=== PATIENT | female | born 1935 | race African-American/Black ===

== ENCOUNTER 2021-05-18 15:43 | Inpatient (IN) | payer MEDICARE ==
[~2021-05-18] VITALS: Ht 165.1 cm; Wt 60.0 kg
[~2021-05-18 15:43] MED LIST: ATOR10TA PO; DILT-26 PO; ESOM20CA PO; LORA10TA7 PO; LOSA100T32 PO; POTA10TA15 PO; RIVA20TA PO
[2021-05-18 16:57] LABS: BASOPHILS % 1.1 % (0.0-2.0); EOSINOPHILS % 1.4 % (0.0-5.0); HEMATOCRIT. 36.1 % (36.0-48.0); HEMOGLOBIN. 11.4 g/dL (12.0-16.0); LYMPHOCYTES % 21.9 % (20.0-50.0); MEAN CORPUSCULAR HEMOGLOBIN 25.8 pg (28.0-32.0); MEAN CORPUSCULAR VOLUME 81.6 fL (81.0-99.0); MEAN PLATELET VOLUME 8.7 fl (7.4-10.4); MONOCYTES % 13.2 % (2.0-8.0); NEUTROPHILS % 62.4 % (40.0-76.0); PLATELET 268 x1000/uL (130-400); RED BLOOD CELL COUNT 4.42 mill/uL (4.2-5.4); RED CELL DISTRIBUTION WIDTH 14.9 % (11.6-14.6)
[2021-05-18 17:00] LABS: CHLORIDE 102 mEq/L (98-107)
[2021-05-18] MEDS ORDERED: POTASSIUM CHLORIDE 20MEQ/PACKET PO ONE (21:15)
[2021-05-19] MEDS: LORAZEPAM 2MG/ML CPJ IV PRN ×2 (07:00→15:41)
[2021-05-19 09:45] VITALS: BP 137/74
[2021-05-19] MEDS ORDERED: ACETAMINOPHEN 650MG SUPP PR PRN (11:00)
[2021-05-19] MEDS ORDERED: NA PHOS,M-B/NA PHOS,DI-BA ENEMA 118ML PR PRN (11:00)
[2021-05-19] MEDS ORDERED: DOCUSATE SODIUM 100MG CAPSULE PO PRN (11:00)
[2021-05-19] MEDS ORDERED: MAGNESIUM/ALUMINUM HYDROXIDE/SIMETHICONE 30ML UDC PO PRN (11:00)
[2021-05-19] MEDS ORDERED: CEFTRIAXONE 1 G PREMIX 50 ML IV SCH (11:00)
[2021-05-19] MEDS ORDERED: GUAIFENESIN 200MG/10ML SUGAR FREE UDC PO PRN (11:00)
[2021-05-19] MEDS ORDERED: IPRATROPIUM/ALBUTEROL 0.5-3(2.5)MG/3ML NEB NEB PRN (11:00)
[2021-05-19] MEDS ORDERED: NALOXONE HCL 0.4MG/ML VIAL IV PRN (11:45)
[2021-05-19 12:00] VITALS: BP 142/64
[2021-05-19] MEDS ORDERED: ENOXAPARIN 30MG/0.3ML SYR SUBCUT SCH (12:00)
[2021-05-19 12:39] LABS: BASOPHILS % 0.7 % (0.0-2.0); EOSINOPHILS % 2.3 % (0.0-5.0); HEMATOCRIT. 37.5 % (36.0-48.0); HEMOGLOBIN. 11.9 g/dL (12.0-16.0); MEAN CORPUSCULAR HEMOGLOBIN 25.8 pg (28.0-32.0); MEAN CORPUSCULAR VOLUME 81.3 fL (81.0-99.0); MEAN PLATELET VOLUME 8.2 fl (7.4-10.4); MONOCYTES % 14.9 % (2.0-8.0); NEUTROPHILS % 59.1 % (40.0-76.0); PLATELET 287 x1000/uL (130-400); RED BLOOD CELL COUNT 4.61 mill/uL (4.2-5.4); RED CELL DISTRIBUTION WIDTH 15.1 % (11.6-14.6)
[2021-05-19 12:44] LABS: CHLORIDE 110 mEq/L (98-107)
[2021-05-19] MEDS ORDERED: ENOXAPARIN 80MG/0.8ML SYR SUBCUT SCH (15:00)
[2021-05-19] MEDS: CEFTRIAXONE 1,000 MG in DEXTROSE 5% WATER 50 ML IV SCH (15:53)
[2021-05-19 16:00] VITALS: BP 147/62
[2021-05-19 16:20] LABS: CREATINE KINASE 64 IU/L (26-192)
[2021-05-19 16:22] LABS: CREATINE KINASE MB FRACTION < 1.0 ng/mL (0.5-3.6)
[2021-05-19 16:23] LABS: BG BASE EXCESS 3.2 mmol/L (-2.0-2.0); BG CARBOXYHEMOGLOBIN 0.3 % (0.5-1.5); BG DEOXYHEMOGLOBIN 3.6 % (0.0-5.0); BG FRACTION INSPIRED OXYGEN 21; BG HCO3 ACT 26.6 mmol/L (22.0-26.0); BG METHEMOGLOBIN 0.4 % (0.0-1.5); BG OXYGEN SATURATION 96.4 % (92.0-98.5); BG OXYHEMOGLOBIN 95.7 % (94.0-97.0); BG PCO2 36.2 mmHg (35.0-45.0); BG PH 7.484 (7.350-7.450); BG PO2 84.2 mmHg (75.0-100.0); BG SAMPLE SITE RIGHT BRACHIAL; BG VENT MODE ROOM AIR
[2021-05-19] MEDS ORDERED: ENOXAPARIN 40MG/0.4ML SYR SUBCUT NR (16:30)
[2021-05-19 16:35] LABS: INR 1.1; PROTHROMBIN TIME 11.8 sec (9.6-11.0)
[2021-05-19] MEDS ORDERED: LOSA50TA41 MT (16:40)
[2021-05-19] MEDS ORDERED: SIMV-43 MT (16:40)
[2021-05-19] MEDS ORDERED: AMLO5TAB88 MT (16:42)
[2021-05-19] MEDS ORDERED: DORZ10DR9 EACHEYE (16:42)
[2021-05-19] MEDS ORDERED: FURO20TA4 MT (16:42)
[2021-05-19] MEDS ORDERED: COR6 MT (16:42)
[2021-05-19 20:00] VITALS: BP 119/77
[2021-05-19] MEDS: FAMOTIDINE 20MG TABLET PO SCH (21:28)
[2021-05-19] MEDS: DILTIAZEM HCL 30MG TABLET PO SCH (21:29)
[2021-05-20] VITALS: BP 119/65
[2021-05-20 00:19] LABS: CREATINE KINASE 59 IU/L (26-192)
[2021-05-20 00:20] LABS: CREATINE KINASE MB FRACTION < 1.0 ng/mL (0.5-3.6)
[2021-05-20 04:00] VITALS: BP 141/89
[2021-05-20 07:23] LABS: HEMATOCRIT. 38.5 % (36.0-48.0); HEMOGLOBIN. 12.4 g/dL (12.0-16.0); MEAN CORPUSCULAR HEMOGLOBIN 26.2 pg (28.0-32.0); MEAN CORPUSCULAR VOLUME 81.1 fL (81.0-99.0); MEAN PLATELET VOLUME 8.5 fl (7.4-10.4); PLATELET 293 x1000/uL (130-400); RED BLOOD CELL COUNT 4.74 mill/uL (4.2-5.4)
[2021-05-20 07:53] LABS: CHLORIDE 112 mEq/L (98-107)
[2021-05-20 08:00] VITALS: BP 149/97
[2021-05-20] MEDS: DILTIAZEM HCL 30MG TABLET PO SCH ×3 (08:08→22:28)
[2021-05-20 08:11] LABS: HDL CHOLESTEROL 58 mg/dL (40-59); LDL CHOLESTEROL 145 mg/dL (5-100)
[2021-05-20] MEDS ORDERED: DILTIAZEM HCL 5MG/ML 5ML VIAL IV SCH (09:00)
[2021-05-20] MEDS ORDERED: ASPIRIN 81MG EC TABLET PO SCH (09:00)
[2021-05-20 12:00] VITALS: BP 113/68
[2021-05-20] MEDS: CEFTRIAXONE 1,000 MG in DEXTROSE 5% WATER 50 ML IV SCH (13:37)
[2021-05-20 14:54] LABS: VITAMIN B12 SERUM 496 pg/mL (211-911)
[2021-05-20] MEDS: ENOXAPARIN 60MG/0.6ML SYR SUBCUT SCH ×2 (14:56→22:18)
[2021-05-20] MEDS ORDERED: ENOXAPARIN 80MG/0.8ML SYR SUBCUT SCH (15:00)
[2021-05-20 16:00] VITALS: BP 122/74
[2021-05-20 16:21] LABS: PLATELET ESTIMATE NORMAL
[2021-05-20 20:00] VITALS: BP 151/90
[2021-05-20] MEDS: HYDROCODONE/ACETAMINOPHEN 5/325MG TABLET PO PRN (22:28)
[2021-05-20] MEDS: LORAZEPAM 0.5MG TABLET PO PRN (22:29)
[2021-05-20] MEDS: FAMOTIDINE 20MG TABLET PO SCH (22:29)
[2021-05-20] MEDS: ONDANSETRON HCL 4MG/2ML INJ IV PRN (22:29)
[2021-05-21] VITALS: BP 143/74
[2021-05-21 04:00] VITALS: BP 139/78
[2021-05-21] MEDS: DILTIAZEM HCL 30MG TABLET PO SCH (06:52)
[2021-05-21 08:00] VITALS: BP 135/74
[2021-05-21 12:00] VITALS: BP 136/61
[2021-05-21] MEDS: CEFTRIAXONE 1,000 MG in DEXTROSE 5% WATER 50 ML IV SCH (13:57)
[2021-05-21] MEDS: DILTIAZEM HCL 60MG TABLET PO SCH ×2 (13:57→21:23)
[2021-05-21 16:00] VITALS: BP 111/56
[2021-05-21] MEDS: ENOXAPARIN 80MG/0.8ML SYR SUBCUT SCH ×2 (18:42→21:24)
[2021-05-21 20:00] VITALS: BP 121/57
[2021-05-21] MEDS: LORAZEPAM 0.5MG TABLET PO PRN (20:26)
[2021-05-21] MEDS: ONDANSETRON HCL 4MG/2ML INJ IV PRN (20:27)
[2021-05-21] MEDS: HYDROCODONE/ACETAMINOPHEN 5/325MG TABLET PO PRN (20:27)
[2021-05-21] MEDS: FAMOTIDINE 20MG TABLET PO SCH (21:23)
[2021-05-21] MEDS: MEMANTINE HCL 5MG TABLET PO SCH (21:27)
[2021-05-22] VITALS: BP 137/67
[2021-05-22 04:00] VITALS: BP 141/74
[2021-05-22] MEDS: DILTIAZEM HCL 60MG TABLET PO SCH ×3 (06:57→21:09)
[2021-05-22 08:00] VITALS: BP 147/90
[2021-05-22] MEDS: MEMANTINE HCL 5MG TABLET PO SCH (08:27)
[2021-05-22 12:00] VITALS: BP 141/46
[2021-05-22] MEDS ORDERED: LIDOCAINE HCL/PF 1% 10 MG/ML 5ML VIAL ONE (13:29)
[2021-05-22] MEDS ORDERED: SODIUM BICARBONATE 4% (2.4MEQ) 5ML VIAL IV ONE (13:29)
[2021-05-22] MEDS: CEFTRIAXONE 1,000 MG in DEXTROSE 5% WATER 50 ML IV SCH (14:09)
[2021-05-22 16:00] VITALS: BP 149/50
[2021-05-22 16:42] LABS: BASOPHILS % 1.3 % (0.0-2.0); EOSINOPHILS % 6.2 % (0.0-5.0); HEMATOCRIT. 33.7 % (36.0-48.0); HEMOGLOBIN. 10.6 g/dL (12.0-16.0); LYMPHOCYTES % 25.2 % (20.0-50.0); MEAN CORPUSCULAR VOLUME 82.3 fL (81.0-99.0); MONOCYTES % 13.5 % (2.0-8.0); NEUTROPHILS % 53.8 % (40.0-76.0); PLATELET 308 x1000/uL (130-400); RED BLOOD CELL COUNT 4.09 mill/uL (4.2-5.4)
[2021-05-22 16:50] LABS: CHLORIDE 107 mEq/L (98-107)
[2021-05-22] MEDS: ENOXAPARIN 80MG/0.8ML SYR SUBCUT SCH (19:06)
[2021-05-22 20:00] VITALS: BP 114/54
[2021-05-22] MEDS: FAMOTIDINE 20MG TABLET PO SCH (21:09)
[2021-05-22] MEDS: DIPHENHYDRAMINE 50MG/ML VIAL IV PRN (21:10)
[2021-05-22] MEDS: LORAZEPAM 0.5MG TABLET PO PRN (23:09)
[2021-05-23 04:00] VITALS: BP 136/52
[2021-05-23] MEDS ORDERED: IODIXANOL 320MG/ML 100 ML BOTTLE IV ONE (04:11)
[2021-05-23] MEDS ORDERED: LIDOCAINE HCL 1% 30ML VIAL (10MG/ML) ONE (04:11)
[2021-05-23] MEDS ORDERED: HEPARIN 1,000 UNITS PREMIX 0 ML IV ONE (04:11)
[2021-05-23] MEDS ORDERED: IOHEXOL-300 100 ML BOTTLE ONE (04:12)
[2021-05-23] MEDS ORDERED: MIDAZOLAM HCL 2 MG/2 ML VIAL ONE (04:22)
[2021-05-23] MEDS ORDERED: FENTANYL CITRATE/PF 50MCG/ML 2ML VIAL ONE (04:22)
[2021-05-23] MEDS ORDERED: ONDANSETRON HCL 4MG/2ML INJ ONE (04:26)
[2021-05-23] MEDS: LORAZEPAM 0.5MG TABLET PO PRN ×2 (04:51→22:30)
[2021-05-23] MEDS: ENOXAPARIN 80MG/0.8ML SYR SUBCUT SCH ×2 (06:29→17:12)
[2021-05-23] MEDS: DILTIAZEM HCL 60MG TABLET PO SCH ×3 (06:29→21:25)
[2021-05-23 08:00] VITALS: BP 158/68
[2021-05-23 08:20] LABS: CHLORIDE 110 mEq/L (98-107)
[2021-05-23] MEDS: MEMANTINE HCL 5MG TABLET PO SCH (09:27)
[2021-05-23] MEDS: ALLOPURINOL 100 MG TABLET PO SCH (09:27)
[2021-05-23 10:15] LABS: BASOPHILS % 0.8 % (0.0-2.0); HEMATOCRIT. 34.3 % (36.0-48.0); HEMOGLOBIN. 10.7 g/dL (12.0-16.0); MEAN CORPUSCULAR HEMOGLOBIN 25.5 pg (28.0-32.0); MEAN CORPUSCULAR VOLUME 81.6 fL (81.0-99.0); MEAN PLATELET VOLUME 8.4 fl (7.4-10.4); NEUTROPHILS % 55.2 % (40.0-76.0); PLATELET 316 x1000/uL (130-400); RED BLOOD CELL COUNT 4.21 mill/uL (4.2-5.4); RED CELL DISTRIBUTION WIDTH 15.2 % (11.6-14.6)
[2021-05-23 12:00] VITALS: BP 137/81
[2021-05-23] MEDS: CEFTRIAXONE 1,000 MG in DEXTROSE 5% WATER 50 ML IV SCH (13:38)
[2021-05-23] MEDS ORDERED: ALLO100T MT ×2 (14:30)
[2021-05-23] MEDS ORDERED: MEMA5TAB7 MT ×2 (14:30)
[2021-05-23] MEDS ORDERED: MED4 MT ×2 (14:30)
[2021-05-23] MEDS ORDERED: DILT60TA41 MT ×2 (14:30)
[2021-05-23] MEDS: PREDNISONE 20MG TABLET PO SCH (14:50)
[2021-05-23 16:00] VITALS: BP 153/90
[2021-05-23 16:42] LABS: CLARITY URINE TURBID (CLEAR); COLOR URINE YELLOW (YELLOW); KETONES URINE TRACE (NEGATIVE); LEUKOCYTE ESTERASE URINE 3+ (NEGATIVE); NITRITE URINE POSITIVE (NEGATIVE); OCCULT BLOOD URINE 2+ (NEGATIVE); PH URINE 5.5 (4.5-8.0); PROTEIN URINE 1+ (NEGATIVE); SPECIFIC GRAVITY URINE 1.018 (1.005-1.030); UROBILINOGEN URINE 0.2 E.U./dL (0.2-1.0)
[2021-05-23 20:00] VITALS: BP 149/76
[2021-05-23] MEDS: FAMOTIDINE 20MG TABLET PO SCH (21:23)
[2021-05-24] VITALS: BP 162/79
[2021-05-24 04:00] VITALS: BP 113/71
[2021-05-24] MEDS: DILTIAZEM HCL 60MG TABLET PO SCH ×4 (05:43→21:09)
[2021-05-24] MEDS: ENOXAPARIN 80MG/0.8ML SYR SUBCUT SCH (05:43)
[2021-05-24 08:00] VITALS: BP 141/54
[2021-05-24] MEDS: PREDNISONE 20MG TABLET PO SCH (08:29)
[2021-05-24] MEDS: MEMANTINE HCL 5MG TABLET PO SCH (08:29)
[2021-05-24] MEDS: LORAZEPAM 0.5MG TABLET PO PRN (08:29)
[2021-05-24] MEDS: ALLOPURINOL 100 MG TABLET PO SCH (08:30)
[2021-05-24 12:00] VITALS: BP 144/64
[2021-05-24] MEDS: CEFTRIAXONE 1,000 MG in DEXTROSE 5% WATER 50 ML IV SCH (13:00)
[2021-05-24 16:00] VITALS: BP 136/82
[2021-05-24 16:13] LABS: BASOPHILS % 0.4 % (0.0-2.0); HEMATOCRIT. 37.2 % (36.0-48.0); LYMPHOCYTES % 11.7 % (20.0-50.0); MEAN CORPUSCULAR HEMOGLOBIN 26.7 pg (28.0-32.0); MEAN CORPUSCULAR VOLUME 82.6 fL (81.0-99.0); MEAN PLATELET VOLUME 9.1 fl (7.4-10.4); MONOCYTES % 3.3 % (2.0-8.0); NEUTROPHILS % 84.6 % (40.0-76.0); PLATELET 293 x1000/uL (130-400); RED CELL DISTRIBUTION WIDTH 15.2 % (11.6-14.6)
[2021-05-24 16:40] LABS: CHLORIDE 104 mEq/L (98-107)
[2021-05-24] MEDS: RISPERIDONE 0.25MG TABLET PO SCH (18:05)
[2021-05-24] MEDS ORDERED: DIGOXIN 500MCG/2ML AMP IV NR (19:00)
[2021-05-24 20:00] VITALS: BP 110/74
[2021-05-24] MEDS: LORAZEPAM 2MG/ML CPJ IV PRN (21:08)
[2021-05-24] MEDS: FAMOTIDINE 20MG TABLET PO SCH (21:15)
[2021-05-24] MEDS ORDERED: HALOPERIDOL LACTATE 5MG/ML VIAL IM ONE (22:45)
[2021-05-25] VITALS: BP 111/68
[2021-05-25 04:00] VITALS: BP 115/72
[2021-05-25] MEDS: DILTIAZEM HCL 60MG TABLET PO SCH ×3 (06:16→21:17)
[2021-05-25 08:00] VITALS: BP 153/83
[2021-05-25] MEDS: RISPERIDONE 0.25MG TABLET PO SCH ×2 (08:54→23:53)
[2021-05-25] MEDS: MEMANTINE HCL 5MG TABLET PO SCH ×2 (08:54→23:53)
[2021-05-25] MEDS: PREDNISONE 20MG TABLET PO SCH (08:54)
[2021-05-25] MEDS: ALLOPURINOL 100 MG TABLET PO SCH (08:54)
[2021-05-25 12:05] LABS: BASOPHILS % 0.4 % (0.0-2.0); EOSINOPHILS % 0.2 % (0.0-5.0); HEMATOCRIT. 34.5 % (36.0-48.0); LYMPHOCYTES % 14.9 % (20.0-50.0); MEAN CORPUSCULAR VOLUME 81.1 fL (81.0-99.0); MONOCYTES % 9.3 % (2.0-8.0); NEUTROPHILS % 75.2 % (40.0-76.0); PLATELET 371 x1000/uL (130-400); RED BLOOD CELL COUNT 4.25 mill/uL (4.2-5.4)
[2021-05-25 12:14] LABS: CHLORIDE 107 mEq/L (98-107)
[2021-05-25] MEDS: CLOPIDOGREL 75MG TABLET PO SCH (16:56)
[2021-05-25 20:00] VITALS: BP 159/94
[2021-05-25] MEDS: FAMOTIDINE 20MG TABLET PO SCH (21:17)
[2021-05-25] MEDS: HALOPERIDOL LACTATE 5MG/ML VIAL IM PRN (21:17)
[2021-05-26] VITALS: BP 151/73
[2021-05-26 04:00] VITALS: BP 155/86
[2021-05-26] MEDS: DILTIAZEM HCL 60MG TABLET PO SCH ×2 (06:30→14:48)
[2021-05-26 06:59] LABS: HEMATOCRIT 35.8 % (36.0-48.0); HEMOGLOBIN 11.8 g/dL (12.0-16.0); MEAN CORPUSCULAR HEMOGLOBIN 26.6 pg (28.0-32.0); MEAN CORPUSCULAR VOLUME 80.7 fL (81.0-99.0); PLATELET 426 x1000/uL (130-400); RED BLOOD CELL COUNT 4.44 mill/uL (4.2-5.4); RED CELL DISTRIBUTION WIDTH 14.9 % (11.6-14.6)
[2021-05-26 07:03] LABS: CHLORIDE 108 mEq/L (98-107)
[2021-05-26 08:00] VITALS: BP 155/90
[2021-05-26] MEDS: CLOPIDOGREL 75MG TABLET PO SCH (08:35)
[2021-05-26] MEDS: LORAZEPAM 2MG/ML CPJ IV PRN (08:35)
[2021-05-26] MEDS: PREDNISONE 20MG TABLET PO SCH (08:35)
[2021-05-26] MEDS: MEMANTINE HCL 5MG TABLET PO SCH (08:35)
[2021-05-26] MEDS: RISPERIDONE 0.25MG TABLET PO SCH (08:35)
[2021-05-26] MEDS: ALLOPURINOL 100 MG TABLET PO SCH (08:35)
[2021-05-26 12:00] VITALS: BP 154/92
[2021-05-26 16:00] VITALS: BP 166/96
[2021-05-26] MEDS ORDERED: DIGOXIN 500MCG/2ML AMP IV NR (16:48)
[2021-05-26] MEDS: CLONIDINE 0.1MG TABLET PO SCH ×2 (16:57→21:01)
[2021-05-26] MEDS: MEROPENEM 1000MG in NORMAL SALINE 100ML IV SCH (18:11)
[2021-05-26 19:57] VITALS: BP 166/75
[2021-05-26] MEDS: HALOPERIDOL LACTATE 5MG/ML VIAL IM PRN (21:01)
[2021-05-26] MEDS: FAMOTIDINE 20MG TABLET PO SCH (21:01)
[2021-05-26] MEDS ORDERED: DILTIAZEM HCL 90MG TABLET PO SCH (22:00)
[2021-05-27] VITALS (7 sets, daily range): BP systolic 116–191; BP diastolic 54–92
[2021-05-27] MEDS: CLONIDINE 0.1MG TABLET PO PRN (00:24)
[2021-05-27] MEDS: HYDRALAZINE 20MG/ML VIAL IV PRN (02:27)
[2021-05-27] MEDS: MEROPENEM 1000MG in NORMAL SALINE 100ML IV SCH ×2 (06:21→17:50)
[2021-05-27 08:33] LABS: HEMATOCRIT 33.4 % (36.0-48.0); HEMOGLOBIN 10.9 g/dL (12.0-16.0); MEAN CORPUSCULAR HEMOGLOBIN 26.4 pg (28.0-32.0); MEAN CORPUSCULAR VOLUME 80.9 fL (81.0-99.0); PLATELET 420 x1000/uL (130-400); RED BLOOD CELL COUNT 4.13 mill/uL (4.2-5.4); RED CELL DISTRIBUTION WIDTH 15.1 % (11.6-14.6)
[2021-05-27] MEDS: CLOPIDOGREL 75MG TABLET PO SCH (08:59)
[2021-05-27 09:03] LABS: CHLORIDE 108 mEq/L (98-107)
[2021-05-27] MEDS: DILTIAZEM HCL 60MG TABLET PO SCH ×2 (14:00→21:07)
[2021-05-27] MEDS: FAMOTIDINE 20MG TABLET PO SCH (21:07)
[2021-05-28] VITALS: BP 155/75
[2021-05-28 04:00] VITALS: BP 127/76
[2021-05-28] MEDS: MEROPENEM 1000MG in NORMAL SALINE 100ML IV SCH ×2 (05:13→17:08)
[2021-05-28] MEDS: DILTIAZEM HCL 60MG TABLET PO SCH ×3 (06:22→22:07)
[2021-05-28 07:16] LABS: BASOPHILS % 0.4 % (0.0-2.0); EOSINOPHILS % 1.1 % (0.0-5.0); HEMATOCRIT. 37.2 % (36.0-48.0); HEMOGLOBIN. 12.2 g/dL (12.0-16.0); MEAN CORPUSCULAR HEMOGLOBIN 26.6 pg (28.0-32.0); MEAN CORPUSCULAR VOLUME 80.8 fL (81.0-99.0); MEAN PLATELET VOLUME 8.1 fl (7.4-10.4); MONOCYTES % 11.4 % (2.0-8.0); NEUTROPHILS % 56.1 % (40.0-76.0); PLATELET 391 x1000/uL (130-400)
[2021-05-28 07:50] VITALS: BP 143/89
[2021-05-28] MEDS: CLOPIDOGREL 75MG TABLET PO SCH (08:27)
[2021-05-28 11:40] VITALS: BP 164/61
[2021-05-28] MEDS: CLONIDINE 0.1MG TABLET PO PRN ×2 (11:50→22:08)
[2021-05-28 15:52] VITALS: BP 145/77
[2021-05-28 20:00] VITALS: BP 162/75
[2021-05-28] MEDS: FAMOTIDINE 20MG TABLET PO SCH (22:08)
[2021-05-28] MEDS: DIPHENHYDRAMINE 50MG/ML VIAL IV PRN (22:10)
[2021-05-29] VITALS: BP 111/50
[2021-05-29] MEDS: LORAZEPAM 2MG/ML CPJ IV PRN (00:27)
[2021-05-29 04:00] VITALS: BP 132/66
[2021-05-29] MEDS: MEROPENEM 1000MG in NORMAL SALINE 100ML IV SCH ×2 (04:52→17:40)
[2021-05-29] MEDS: DILTIAZEM HCL 60MG TABLET PO SCH ×2 (06:00→14:00)
[2021-05-29 08:40] VITALS: BP 174/63
[2021-05-29] MEDS: CLONIDINE 0.1MG TABLET PO PRN (10:39)
[2021-05-29] MEDS: CLOPIDOGREL 75MG TABLET PO SCH (10:40)
[2021-05-29 12:00] VITALS: BP 132/76
[2021-05-29] MEDS ORDERED: LIDOCAINE HCL 1% 20ML VIAL (Pyxis) INJ ONE (13:18)
[2021-05-29 15:54] VITALS: BP 109/51
[2021-05-29 20:05] VITALS: BP 128/58
[2021-05-29] MEDS: FAMOTIDINE 20MG TABLET PO SCH (21:00)
[2021-05-30] VITALS: BP 122/60
[2021-05-30 01:11] LABS: BASOPHILS % 0.6 % (0.0-2.0); EOSINOPHILS % 4.4 % (0.0-5.0); HEMATOCRIT. 33.3 % (36.0-48.0); HEMOGLOBIN. 10.8 g/dL (12.0-16.0); LYMPHOCYTES % 17.4 % (20.0-50.0); MEAN CORPUSCULAR HEMOGLOBIN 26.5 pg (28.0-32.0); MEAN CORPUSCULAR VOLUME 82.1 fL (81.0-99.0); MONOCYTES % 10.4 % (2.0-8.0); NEUTROPHILS % 67.2 % (40.0-76.0); PLATELET 322 x1000/uL (130-400); RED BLOOD CELL COUNT 4.06 mill/uL (4.2-5.4); RED CELL DISTRIBUTION WIDTH 15.2 % (11.6-14.6)
[2021-05-30 01:14] LABS: CHLORIDE 109 mEq/L (98-107)
[2021-05-30 01:22] LABS: CREATINE KINASE 29 IU/L (26-192)
[2021-05-30 01:25] LABS: CREATINE KINASE MB FRACTION < 1.0 ng/mL (0.5-3.6)
[2021-05-30 01:35] LABS: DIGOXIN 0.5 ng/mL (0.9-2.0)
[2021-05-30 04:00] VITALS: BP 128/54
[2021-05-30] MEDS: MEROPENEM 1000MG in NORMAL SALINE 100ML IV SCH ×2 (06:17→17:41)
[2021-05-30] MEDS ORDERED: NA PHOS,M-B/NA PHOS,DI-BA ENEMA 118ML PR SCH (07:00)
[2021-05-30 08:00] VITALS: BP 140/76
[2021-05-30] MEDS ORDERED: DILTIAZEM HCL 60MG TABLET PO NR (11:00)
[2021-05-30] MEDS ORDERED: DILTIAZEM HCL 5MG/ML 5ML VIAL IV NR (11:00)
[2021-05-30 12:00] VITALS: BP 156/74
[2021-05-30 13:14] LABS: HEMATOCRIT. 35.3 % (36.0-48.0); HEMOGLOBIN. 11.2 g/dL (12.0-16.0); MEAN CORPUSCULAR HEMOGLOBIN 25.8 pg (28.0-32.0); MEAN CORPUSCULAR VOLUME 81.3 fL (81.0-99.0); MEAN PLATELET VOLUME 8.2 fl (7.4-10.4); PLATELET 329 x1000/uL (130-400); RED BLOOD CELL COUNT 4.34 mill/uL (4.2-5.4); RED CELL DISTRIBUTION WIDTH 15.3 % (11.6-14.6)
[2021-05-30 13:18] LABS: CHLORIDE 107 mEq/L (98-107)
[2021-05-30] MEDS ORDERED: LEVOFLOXACIN 500MG PREMIX 100 ML IV SCH ×2 (13:30→15:00)
[2021-05-30 13:46] LABS: PLATELET ESTIMATE NORMAL
[2021-05-30] MEDS ORDERED: DILTIAZEM HCL 30MG TABLET PO SCH (14:00)
[2021-05-30 16:00] VITALS: BP 130/58
[2021-05-30 16:17] LABS: CLARITY URINE CLEAR (CLEAR); COLOR URINE YELLOW (YELLOW); KETONES URINE NEGATIVE (NEGATIVE); LEUKOCYTE ESTERASE URINE NEGATIVE (NEGATIVE); NITRITE URINE NEGATIVE (NEGATIVE); OCCULT BLOOD URINE NEGATIVE (NEGATIVE); PH URINE 6.5 (4.5-8.0); PROTEIN URINE NEGATIVE (NEGATIVE); SPECIFIC GRAVITY URINE 1.015 (1.005-1.030); UROBILINOGEN URINE 0.2 E.U./dL (0.2-1.0)
[2021-05-30 20:00] VITALS: BP 103/64
[2021-05-30] MEDS: FAMOTIDINE 20MG TABLET PO SCH (21:00)
[2021-05-30] MEDS: DILTIAZEM HCL 30MG TABLET PO SCH (22:11)
[2021-05-31] VITALS: BP 143/93
[2021-05-31] MEDS: ACETAMINOPHEN 325MG TABLET PO PRN (01:28)
[2021-05-31 04:00] VITALS: BP 143/84
[2021-05-31] MEDS: MEROPENEM 1000MG in NORMAL SALINE 100ML IV SCH (05:50)
[2021-05-31] MEDS: DILTIAZEM HCL 30MG TABLET PO SCH ×3 (05:51→18:50)
[2021-05-31 07:06] LABS: BASOPHILS % 0.7 % (0.0-2.0); HEMATOCRIT. 34.4 % (36.0-48.0); LYMPHOCYTES % 24.1 % (20.0-50.0); MEAN CORPUSCULAR HEMOGLOBIN 26.2 pg (28.0-32.0); MEAN CORPUSCULAR VOLUME 81.8 fL (81.0-99.0); MEAN PLATELET VOLUME 8.1 fl (7.4-10.4); MONOCYTES % 9.5 % (2.0-8.0); NEUTROPHILS % 62.7 % (40.0-76.0); PLATELET 299 x1000/uL (130-400); RED BLOOD CELL COUNT 4.21 mill/uL (4.2-5.4); RED CELL DISTRIBUTION WIDTH 15.3 % (11.6-14.6)
[2021-05-31 08:20] VITALS: BP 148/63
[2021-05-31] MEDS ORDERED: LEVOFLOXACIN 250MG PREMIX 50 ML IV SCH (11:00)
[2021-05-31 12:00] VITALS: BP 141/63
[2021-05-31 16:00] VITALS: BP 142/54
[2021-05-31 20:00] VITALS: BP 142/85
[2021-05-31] MEDS: FAMOTIDINE 20MG TABLET PO SCH (21:49)
[2021-06-01] VITALS: BP 159/68
[2021-06-01 04:00] VITALS: BP 165/66
[2021-06-01 06:04] LABS: BASOPHILS % 0.8 % (0.0-2.0); EOSINOPHILS % 4.5 % (0.0-5.0); HEMATOCRIT. 36.8 % (36.0-48.0); HEMOGLOBIN. 11.6 g/dL (12.0-16.0); LYMPHOCYTES % 22.5 % (20.0-50.0); MEAN CORPUSCULAR HEMOGLOBIN 25.6 pg (28.0-32.0); MEAN CORPUSCULAR VOLUME 81.4 fL (81.0-99.0); MEAN PLATELET VOLUME 8.5 fl (7.4-10.4); MONOCYTES % 11.3 % (2.0-8.0); NEUTROPHILS % 60.9 % (40.0-76.0); PLATELET 290 x1000/uL (130-400); RED BLOOD CELL COUNT 4.52 mill/uL (4.2-5.4); RED CELL DISTRIBUTION WIDTH 15.4 % (11.6-14.6)
[2021-06-01 06:29] LABS: CHLORIDE 111 mEq/L (98-107)
[2021-06-01] MEDS: DILTIAZEM HCL 30MG TABLET PO SCH ×4 (06:34→18:59)
[2021-06-01 08:00] VITALS: BP 162/72
[2021-06-01 08:01] LABS: CLARITY URINE CLEAR (CLEAR); COLOR URINE YELLOW (YELLOW); KETONES URINE NEGATIVE (NEGATIVE); LEUKOCYTE ESTERASE URINE TRACE (NEGATIVE); NITRITE URINE NEGATIVE (NEGATIVE); OCCULT BLOOD URINE NEGATIVE (NEGATIVE); PROTEIN URINE NEGATIVE (NEGATIVE); SPECIFIC GRAVITY URINE 1.012 (1.005-1.030); UROBILINOGEN URINE 0.2 E.U./dL (0.2-1.0)
[2021-06-01] MEDS: CLOPIDOGREL 75MG TABLET PO SCH (08:32)
[2021-06-01 12:00] VITALS: BP 151/74
[2021-06-01 15:53] VITALS: BP 141/72
[2021-06-01] MEDS ORDERED: CLOP-31 MT (17:00)
[2021-06-01] MEDS ORDERED: DILT30TA38 MT (17:00)
[2021-06-01 20:00] VITALS: BP 157/73
[2021-06-01] MEDS: FAMOTIDINE 20MG TABLET PO SCH (20:18)
[2021-06-02] VITALS: BP 144/84
[2021-06-02] MEDS: DILTIAZEM HCL 30MG TABLET PO SCH ×5 (00:05→23:33)
[2021-06-02 04:00] VITALS: BP 153/71
[2021-06-02 08:05] VITALS: BP 164/68
[2021-06-02] MEDS: CLOPIDOGREL 75MG TABLET PO SCH (08:27)
[2021-06-02 12:03] VITALS: BP 156/121
[2021-06-02 16:00] VITALS: BP 153/57
[2021-06-02 20:00] VITALS: BP 143/60
[2021-06-02] MEDS: FAMOTIDINE 20MG TABLET PO SCH ×2 (20:48→20:53)
[2021-06-03] VITALS: BP_SYST 145; BP_SYST 166; BP_DIAS 69; BP_DIAS 95
[2021-06-03 04:00] VITALS: BP 166/69
[2021-06-03] MEDS: DILTIAZEM HCL 30MG TABLET PO SCH ×3 (05:32→17:45)
[2021-06-03 11:12] VITALS: BP 171/89
[2021-06-03] MEDS: CLOPIDOGREL 75MG TABLET PO SCH (11:16)
[2021-06-03 17:37] VITALS: BP 144/90
[2021-06-03 20:00] VITALS: BP 137/53
[2021-06-03 20:00] LABS: HEMATOCRIT. 33.1 % (36.0-48.0); HEMOGLOBIN. 10.6 g/dL (12.0-16.0); MEAN CORPUSCULAR HEMOGLOBIN 26.3 pg (28.0-32.0); MEAN CORPUSCULAR VOLUME 82.3 fL (81.0-99.0); MEAN PLATELET VOLUME 8.3 fl (7.4-10.4); PLATELET 203 x1000/uL (130-400); RED BLOOD CELL COUNT 4.03 mill/uL (4.2-5.4); RED CELL DISTRIBUTION WIDTH 15.6 % (11.6-14.6)
[2021-06-03 20:16] LABS: CHLORIDE 110 mEq/L (98-107)
[2021-06-03] MEDS: FAMOTIDINE 20MG TABLET PO SCH (21:00)
[2021-06-03 22:38] LABS: PLATELET ESTIMATE NORMAL
[2021-06-04 04:30] VITALS: BP 107/77
[2021-06-04] MEDS: DILTIAZEM HCL 30MG TABLET PO SCH ×4 (05:42→18:55)
[2021-06-04 08:00] VITALS: BP 180/72
[2021-06-04] MEDS: HYDRALAZINE 20MG/ML VIAL IV PRN ×2 (08:48→22:29)
[2021-06-04] MEDS: CLOPIDOGREL 75MG TABLET PO SCH (08:48)
[2021-06-04 12:00] VITALS: BP 165/68
[2021-06-04 16:00] VITALS: BP 171/68
[2021-06-04 20:00] VITALS: BP 171/57
[2021-06-04] MEDS: FAMOTIDINE 20MG TABLET PO SCH (22:28)
[2021-06-05] VITALS: BP 142/51
[2021-06-05 04:00] VITALS: BP 159/63
[2021-06-05] MEDS: DILTIAZEM HCL 30MG TABLET PO SCH ×3 (06:46→12:10)
[2021-06-05 07:59] VITALS: BP 144/72
[2021-06-05] MEDS: CLOPIDOGREL 75MG TABLET PO SCH (08:51)
[2021-06-05] MEDS: ACETAMINOPHEN 325MG TABLET PO PRN (08:51)
[2021-06-05 11:59] VITALS: BP 136/68
[2021-06-05 12:26] VITALS: BP 136/68
[2021-06-05] MEDS ORDERED: NA PHOS,M-B/NA PHOS,DI-BA ENEMA 118ML PR NR (13:45)
== END 2021-06-05 14:20 | disposition home or self-care (01) | DRG 70 ==
LOC: ER 15:43 → MICUSO 21:39 → 6WST 05-19 09:43
PROVIDERS: ADMIT Internal Medicine; ATTEND Internal Medicine
PROC: 4A10X4Z Monitoring of Central Nervous Electrical Activity, External Approach (ICD-10-PCS; principal; 2021-05-22)
PROC: 0S9D3ZZ Drainage of Left Knee Joint, Percutaneous Approach (ICD-10-PCS; 2021-05-22)
PROC: 02HV33Z Insertion of Infusion Device into Superior Vena Cava, Percutaneous Approach (ICD-10-PCS; 2021-05-29)
PROC: B518ZZA Fluoroscopy of Superior Vena Cava, Guidance (ICD-10-PCS; 2021-05-29)
PROC: B548ZZA Ultrasonography of Superior Vena Cava, Guidance (ICD-10-PCS; 2021-05-29)
DX: G93.41 Metabolic encephalopathy (principal); I50.43 Acute on chronic combined systolic (congestive) and diastolic (congestive) heart failure; N17.9 Acute kidney failure, unspecified; D68.59 Other primary thrombophilia; N39.0 Urinary tract infection, site not specified; Z16.12 Extended spectrum beta lactamase (ESBL) resistance; I13.0 Hypertensive heart and chronic kidney disease with heart failure and stage 1 through stage 4 chronic kidney disease, or unspecified chronic kidney disease; E78.5 Hyperlipidemia, unspecified; E87.6 Hypokalemia; I25.10 Atherosclerotic heart disease of native coronary artery without angina pectoris; N18.9 Chronic kidney disease, unspecified; D64.9 Anemia, unspecified; D16.9 Benign neoplasm of bone and articular cartilage, unspecified; F03.90 Unspecified dementia, unspecified severity, without behavioral disturbance, psychotic disturbance, mood disturbance, and anxiety; E78.00 Pure hypercholesterolemia, unspecified; R79.89 Other specified abnormal findings of blood chemistry; I49.5 Sick sinus syndrome; B96.20 Unspecified Escherichia coli [E. coli] as the cause of diseases classified elsewhere; M10.9 Gout, unspecified; Z20.822 Contact with and (suspected) exposure to COVID-19; M25.462 Effusion, left knee; I48.0 Paroxysmal atrial fibrillation; Z79.899 Other long term (current) drug therapy; Z88.6 Allergy status to analgesic agent; Z88.8 Allergy status to other drugs, medicaments and biological substances; Z95.0 Presence of cardiac pacemaker; Z79.01 Long term (current) use of anticoagulants; Z87.891 Personal history of nicotine dependence; Z91.81 History of falling; H40.9 Unspecified glaucoma; M17.12 Unilateral primary osteoarthritis, left knee; M16.12 Unilateral primary osteoarthritis, left hip; G90.9 Disorder of the autonomic nervous system, unspecified
CPT/HCPCS: 20611; 36415; 36573; 36600; 70551; 71045; 72170; 73060; 73560; 73700; 78582; 80048; 80053; 80061; 80162; 81003; 82040; 82140; 82375; 82550; 82553; 82607; 82805; 83605; 83615; 83735; 83880; 84443; 84478; 84484; 84550; 85025; 85027; 85379; 87077; 87186; 87426; 88108; 88312; 89060; 93005; 93306; 93880; 93970; 95816; 97162; 99285; A9558; C1725; C1769; C1893; J0360; J0696; J1160; J1200; J1630; J1644; J1650; J1956; J2060; J2185; J2250; J2405; J3010; J3490; J7060; J7512; Q9967